=== PATIENT | female | born 1960 ===

== ENCOUNTER 2020-11-08 16:37 | Inpatient (IN) | payer OTHER ==
[~2020-11-08 16:37] MED LIST: Iopamidol 370 76% 100 ML VIAL ONE; Iopamidol 370 76% 50 ML VIAL FS ONE
[2020-11-08 17:11] LABS: #Basophils 0.1 thou/uL (0.0-0.2); #Lymphocytes 1.7 thou/uL (1.20-3.40); #Monocytes 0.8 thou/uL (0.11-0.59); #Neutrophils 14.2 thou/uL (1.40-6.50); %Basophils 0.5 % (0.0-1.0); %Eosinophils 0.3 % (0.0-10.0); %Lymphocytes 10.1 % (21.0-51.0); %Monocytes 4.5 % (0.0-10.0); %Neutrophils 84.6 % (42.0-75.0); Hemoglobin 14.6 g/dL (12.0-16.0); Mean Corpuscular HGB CONC 34.7 g/dL (32.0-36.0); Mean Corpuscular Hemoglobin 31.5 pg (27.0-31.0); Mean Corpuscular Volume 90.9 fL (78.0-98.0); Mean Platelet Volume 8.5 fL (7.4-10.4); Platelet Count 203 thou/uL (130-400); RBC Distribution Width 11.8 % (11.5-14.5); Red Blood Cell (RBC) Count 4.62 mill/uL (4.20-5.40); White Blood Cell (WBC) Count 16.8 thou/uL (4.8-10.8)
[2020-11-08 17:40] LABS: ALT (SGPT) 21 U/L (8-55); AST (SGOT) 27 U/L (5-34); Albumin 3.7 g/dL (3.5-5.0); Alkaline Phosphatase 49 U/L (40-110); Anion Gap 10 mmol/L (10-20); BUN (Urea Nitrogen) 12 mg/dL (9.8-20.1); Bilirubin, Total 0.3 mg/dL (0.2-1.2); Calc. Creatinine Clearance 0 mL/min (70-130); Calcium 8.7 mg/dL (7.8-10.44); Carbon Dioxide 27 mmol/L (22-29); Chloride 107 mmol/L (98-107); Globulin 2.4 g/dL (2.4-3.5); Glucose 148 mg/dL (70-105); Potassium 4.2 mmol/L (3.5-5.1); Protein, Total 6.1 g/dL (6.0-8.3); Sodium 140 mmol/L (136-145)
[2020-11-08] MEDS ORDERED: Adenosine 6 MG/2 ML VIAL ONE (18:18)
[2020-11-08] MEDS ORDERED: Heparin 10,000 UNITS/ 10 ML VIAL ONE ×2 (18:18→19:06)
[2020-11-08] MEDS ORDERED: Heparin 25,000 units/D5W 0 ML ONE (18:18)
[2020-11-08 18:22] LABS: CKMB 26.4 ng/mL (0-6.6)
[2020-11-08] MEDS ORDERED: Aspirin 325 MG TAB ONE (18:59)
[2020-11-08] MEDS ORDERED: Ondansetron PF 4 MG/2 ML Vial IVP PRN (19:00)
[2020-11-08] MEDS ORDERED: Nitroglycerin 0.4 MG TAB (25 Tab Bottle) SL PRN (19:00)
[2020-11-08] MEDS ORDERED: Acetaminophen 325 MG TAB PO PRN (19:00)
[2020-11-08] MEDS ORDERED: Lidocaine 1% (PF) 30 ML VIAL ONE (19:06)
[2020-11-08] MEDS ORDERED: HumaLOG 300 UNITS/3 ML VIAL ONE (19:22)
[2020-11-08] MEDS ORDERED: Fentanyl 100 MCG/2 ML VIAL ONE (19:39)
[2020-11-08] MEDS ORDERED: Atropine Sulfate 1 mg/10 ml Syringe ONE (19:39)
[2020-11-08] MEDS ORDERED: Midazolam HCl 2 mg/2 ml Vial ONE (19:39)
[2020-11-08] MEDS ORDERED: Nitroglycerin 100MG/250ML BOT 250 ML ONE (19:59)
[2020-11-08] MEDS ORDERED: Ondansetron PF 4 MG/2 ML Vial ONE (19:59)
[2020-11-08] MEDS ORDERED: TICAGRELOR 90 MG TABLET ONE (20:21)
[2020-11-08] MEDS ORDERED: Sodium Chloride 0.9% 1,000 ML IV SCH (21:30)
[2020-11-08] MEDS ORDERED: TICAGRELOR 90 MG TABLET PO SCH (21:30)
[2020-11-09 01:34] LABS: SARS-CoV-2 NAA Rapid Test Not Detected (NotDetected)
[2020-11-09 01:43] VITALS: BMI 30.5
[2020-11-09] MEDS ORDERED: FLU VACC QS2021-22(6MOS UP)/PF 60 MCG/0.5 ML SYRINGE IM ONE (01:45)
[2020-11-09 05:02] LABS: #Eosinphils 0.2 thou/uL (0.0-0.7); #Lymphocytes 3.3 thou/uL (1.20-3.40); #Monocytes 1.4 thou/uL (0.11-0.59); #Neutrophils 12.8 thou/uL (1.40-6.50); %Basophils 0.3 % (0.0-1.0); %Eosinophils 0.9 % (0.0-10.0); %Lymphocytes 18.7 % (21.0-51.0); %Monocytes 7.8 % (0.0-10.0); %Neutrophils 72.4 % (42.0-75.0); Hemoglobin 14.4 g/dL (12.0-16.0); Mean Corpuscular Hemoglobin 30.9 pg (27.0-31.0); Mean Corpuscular Volume 90.7 fL (78.0-98.0); Mean Platelet Volume 8.5 fL (7.4-10.4); Platelet Count 205 thou/uL (130-400); RBC Distribution Width 12.2 % (11.5-14.5); Red Blood Cell (RBC) Count 4.67 mill/uL (4.20-5.40); White Blood Cell (WBC) Count 17.7 thou/uL (4.8-10.8)
[2020-11-09 05:21] LABS: ALT (SGPT) 33 U/L (8-55); AST (SGOT) 121 U/L (5-34); Albumin 3.7 g/dL (3.5-5.0); Alkaline Phosphatase 48 U/L (40-110); Anion Gap 12 mmol/L (10-20); BUN (Urea Nitrogen) 8 mg/dL (9.8-20.1); Bilirubin, Total 0.5 mg/dL (0.2-1.2); Calc. Creatinine Clearance 129 mL/min (70-130); Calcium 8.9 mg/dL (7.8-10.44); Carbon Dioxide 23 mmol/L (22-29); Cardiac Risk 4.5 (Less than 4.5); Chloride 111 mmol/L (98-107); Cholesterol 153 mg/dl (< 200 Desired); Globulin 2.4 g/dL (2.4-3.5); Glucose 91 mg/dL (70-105); HDL Cholesterol 34 mg/dL (>60 Neg Risk); LDL Cholesterol, Calculated 78 mg/dL; Potassium 3.8 mmol/L (3.5-5.1); Protein, Total 6.1 g/dL (6.0-8.3); Sodium 142 mmol/L (136-145); Triglycerides 204 mg/dL (Less than 150)
[2020-11-09 08:47] LABS: Troponin I 32.299 ng/mL (< 0.028)
[2020-11-09] MEDS: Lisinopril 5 MG TAB PO SCH (10:18)
[2020-11-09] MEDS: Aspirin Chewable 81 MG TAB PO SCH (10:18)
[2020-11-09] MEDS: TICAGRELOR 90 MG TABLET PO SCH ×2 (10:20→20:41)
[2020-11-09] MEDS ORDERED: Potassium Chloride 20 MEQ TAB PO SCH (12:00)
[2020-11-09] MEDS: Rosuvastatin 20 MG TAB PO SCH (20:41)
[2020-11-10 05:26] LABS: Anion Gap 9 mmol/L (10-20); BUN (Urea Nitrogen) 12 mg/dL (9.8-20.1); Calc. Creatinine Clearance 115 mL/min (70-130); Calcium 8.7 mg/dL (7.8-10.44); Carbon Dioxide 26 mmol/L (22-29); Chloride 110 mmol/L (98-107); Glucose 93 mg/dL (70-105); Magnesium 2.1 mg/dL (1.6-2.6); Potassium 3.8 mmol/L (3.5-5.1); Sodium 141 mmol/L (136-145)
[2020-11-10] MEDS: Aspirin Chewable 81 MG TAB PO SCH (09:28)
[2020-11-10] MEDS: TICAGRELOR 90 MG TABLET PO SCH (09:28)
[2020-11-10] MEDS: Lisinopril 5 MG TAB PO SCH (09:28)
[2020-11-10] MEDS ORDERED: Clopidogrel Bisulfate 300 MG TAB PO SCH (10:00)
[2020-11-10] MEDS ORDERED: Potassium Chloride 20 MEQ TAB PO SCH ×2 (12:00→17:00)
[2020-11-10] MEDS: Rosuvastatin 20 MG TAB PO SCH (21:20)
[2020-11-11 08:20] VITALS: TEMP 98.4
[2020-11-11] MEDS ORDERED: Clopidogrel Bisulfate 75 MG TAB PO SCH (09:00)
[2020-11-11] MEDS: Aspirin Chewable 81 MG TAB PO SCH (09:21)
[2020-11-11] MEDS: Lisinopril 5 MG TAB PO SCH (09:32)
[2020-11-11 11:41] VITALS: BP 102/51
== END 2020-11-11 14:28 | disposition home or self-care (01) | DRG 247 ==
LOC: ERS 16:37 → SDC/OP 19:54 → 2NO 21:06
PROVIDERS: ADMIT Internal Medicine Cardiovascular Disease; ATTEND Internal Medicine
PROC: 027034Z Dilation of Coronary Artery, One Artery with Drug-eluting Intraluminal Device, Percutaneous Approach (ICD-10-PCS; principal; 2020-11-08)
PROC: 4A023N7 Measurement of Cardiac Sampling and Pressure, Left Heart, Percutaneous Approach (ICD-10-PCS; 2020-11-08)
PROC: B2111ZZ Fluoroscopy of Multiple Coronary Arteries using Low Osmolar Contrast (ICD-10-PCS; 2020-11-08)
DX: I21.4 Non-ST elevation (NSTEMI) myocardial infarction (principal); I47.2 Ventricular tachycardia; F32.A Depression, unspecified; I10 Essential (primary) hypertension; D72.829 Elevated white blood cell count, unspecified; E78.00 Pure hypercholesterolemia, unspecified; I25.10 Atherosclerotic heart disease of native coronary artery without angina pectoris; R00.1 Bradycardia, unspecified; F17.210 Nicotine dependence, cigarettes, uncomplicated; Z20.822 Contact with and (suspected) exposure to COVID-19; Z71.6 Tobacco abuse counseling; Z98.890 Other specified postprocedural states
CPT/HCPCS: 36415; 71045; 80048; 80053; 80061; 82553; 83735; 83880; 84484; 85025; 85347; 92928; 93005; 93010; 93306; 93458; 93798; 99152; 99153; C1874; C9600; J0153; J0461; J1644; J1815; J2001; J2250; J2405; J3010; J7050; Q9967; U0002

== ENCOUNTER 2020-12-31 12:57 | Outpatient (CLI) | payer OTHER ==
[2020-12-31 14:43] LABS: #Basophils 0.1 10x3/uL (0.0-0.2); #Eosinphils 0.3 10x3/uL (0.0-0.5); #Neutrophils 5.9 10x3/uL (1.5-8.4); %Basophils 1.1 % (0.0-2.0); %Eosinophils 2.8 % (0.0-6.0); %Monocytes 9.9 % (0.0-10.0); %Neutrophils 57.9 % (40.0-75.0); Hemoglobin 13.6 g/dL (12.0-15.5); Mean Corpuscular HGB CONC 33.1 g/dL (32.0-36.0); Mean Corpuscular Hemoglobin 29.8 pg (27.0-33.0); Mean Corpuscular Volume 90.1 fl (81.6-98.3); Mean Platelet Volume 10.8 fl (7.4-10.4); Platelet Count 227 10x3/uL (150-450); RBC Distribution Width 12.5 % (11.5-14.5); Red Blood Cell (RBC) Count 4.56 10x6/uL (3.90-5.03); White Blood Cell (WBC) Count 10.2 10x3/uL (3.5-10.5)
[2020-12-31 14:55] LABS: ALT (SGPT) 22 U/L (8-55); AST (SGOT) 19 U/L (5-34); Albumin 4.1 g/dL (3.5-5.0); Alkaline Phosphatase 41 U/L (40-110); Anion Gap 13 mmol/L (10-20); BUN (Urea Nitrogen) 14 mg/dL (9.8-20.1); Bilirubin, Total 0.3 mg/dL (0.2-1.2); Calc. Creatinine Clearance 0 mL/min (70-130); Carbon Dioxide 24 mmol/L (22-29); Chloride 112 mmol/L (98-107); Globulin 2.5 g/dL (2.4-3.5); Glucose 75 mg/dL (70-105); Potassium 4.6 mmol/L (3.5-5.1); Protein, Total 6.6 g/dL (6.0-8.3); Sodium 144 mmol/L (136-145)
[2020-12-31 23:22] LABS: SARS-CoV-2 PCR by NAA Not Detected (NotDetected)
== END 2020-12-31 12:58 | disposition home or self-care (01) ==
LOC: LABBT 12:57
PROVIDERS: ATTEND Internal Medicine Cardiovascular Disease
DX: Z01.812 Encounter for preprocedural laboratory examination (principal); I25.10 Atherosclerotic heart disease of native coronary artery without angina pectoris; Z20.822 Contact with and (suspected) exposure to COVID-19
CPT/HCPCS: 80053; 85025; U0003; U0005

== ENCOUNTER 2021-01-05 07:37 | Observation (INO) | payer OTHER ==
[2021-01-03 15:34] VITALS: BMI 30.1
[2021-01-05] MEDS ORDERED: Heparin 10,000 UNITS/ 10 ML VIAL ONE (09:22)
[2021-01-05] MEDS ORDERED: Iopamidol 370 76% 50 ML VIAL FS ONE (09:24)
[2021-01-05] MEDS ORDERED: Iopamidol 370 76% 100 ML VIAL ONE (09:24)
[2021-01-05] MEDS ORDERED: Midazolam HCl 2 mg/2 ml Vial ONE (10:04)
[2021-01-05] MEDS ORDERED: Fentanyl 100 MCG/2 ML VIAL ONE (10:04)
[2021-01-05] MEDS ORDERED: Atropine Sulfate 1 mg/10 ml Syringe ONE (10:14)
[2021-01-05] MEDS ORDERED: Nitroglycerin 2% Ointment 1 INCH/1 GM Packet ONE (10:24)
[2021-01-05] MEDS ORDERED: Nitroglycerin 100MG/250ML BOT 250 ML ONE (10:24)
[2021-01-05] MEDS ORDERED: Aspirin Chewable 81 MG TAB PO SCH (11:45)
[2021-01-05] MEDS ORDERED: Clopidogrel Bisulfate 300 MG TAB PO SCH (11:45)
[2021-01-05] MEDS ORDERED: Cyclobenzaprine 10 MG TAB PO PRN (11:49)
[2021-01-05] MEDS ORDERED: Nitroglycerin 0.4 MG TAB (25 Tab Bottle) SL PRN (11:49)
[2021-01-05] MEDS ORDERED: Sodium Chloride 0.9% 1,000 ML IV SCH (12:00)
[2021-01-05] MEDS ORDERED: Aspirin Chewable 81 MG TAB ONE (15:23)
[2021-01-05] MEDS ORDERED: Clopidogrel Bisulfate 300 MG TAB ONE (15:23)
[2021-01-05] MEDS ORDERED: Lisinopril 5 MG TAB PO SCH (21:00)
[2021-01-05] MEDS ORDERED: Rosuvastatin 20 MG TAB PO SCH (21:00)
[2021-01-06 07:16] VITALS: BP 119/55; TEMP 97.6
[2021-01-06] MEDS ORDERED: Aspirin Chewable 81 MG TAB PO SCH (09:00)
[2021-01-06] MEDS ORDERED: Clopidogrel Bisulfate 75 MG TAB PO SCH (09:00)
== END 2021-01-06 09:19 | disposition home or self-care (01) ==
LOC: CCL 07:37 → 2SW 11:27
PROVIDERS: ADMIT Internal Medicine Cardiovascular Disease; ATTEND Internal Medicine Cardiovascular Disease
PROC: 027034Z Dilation of Coronary Artery, One Artery with Drug-eluting Intraluminal Device, Percutaneous Approach (ICD-10-PCS; principal; 2021-01-06)
PROC: 4A023N7 Measurement of Cardiac Sampling and Pressure, Left Heart, Percutaneous Approach (ICD-10-PCS; 2021-01-06)
PROC: B2111ZZ Fluoroscopy of Multiple Coronary Arteries using Low Osmolar Contrast (ICD-10-PCS; 2021-01-06)
DX: I25.10 Atherosclerotic heart disease of native coronary artery without angina pectoris (principal); I10 Essential (primary) hypertension; F17.210 Nicotine dependence, cigarettes, uncomplicated; E78.2 Mixed hyperlipidemia; I47.2 Ventricular tachycardia; R00.1 Bradycardia, unspecified; I25.2 Old myocardial infarction; Z79.02 Long term (current) use of antithrombotics/antiplatelets; Z79.82 Long term (current) use of aspirin; Z79.899 Other long term (current) drug therapy; Z88.0 Allergy status to penicillin; Z88.5 Allergy status to narcotic agent; Z95.5 Presence of coronary angioplasty implant and graft
CPT/HCPCS: 85347; 92928; 93005; 93454; 97139; 99152; 99153; C1725; C1769; C1874; C9600; G0378; J0461; J1644; J2250; J3010; Q9967